=== PATIENT | female | born 1955 | race Caucasian/White ===

== ENCOUNTER 2020-06-25 14:00 | Emergency (ER) | payer OTHER, SELFPAY ==
[2020-06-25 14:05] VITALS: BP 141/72; PULSE 78; RESP 17; TEMP 36.3; O2SAT 99; BMI 23.8
--- NOTE | 2020-06-25 15:08 | US_ITS ---
STUDY: ABDOMINAL ULTRASOUND - RIGHT UPPER QUADRANT REASON FOR VISIT: Female, 64 years old PAIN abdominal pain TECHNIQUE: Ultrasound evaluation of the right upper quadrant was performed with real-time and static rankin-scale imaging. TECHNICAL QUALITY: Adequate. COMPARISON: None. FINDINGS: Liver: The liver measures 11.9 cm. There is normal echogenicity of the liver. The bile ducts are within normal limits. There is hepatic color flow. The direction of portal flow is hepatopetal. 3.5 cm cyst in the left lobe of the liver. Another 2.5 cm cyst in the right lobe of the liver. Another 3.5 cm cyst in the right lobe the liver. Gallbladder: Normal distended gallbladder. The gallbladder wall measures 2 mm. There is a negative sonographic Mims''s sign. There is no pericholecystic fluid. There are no gallstones. Common Bile Duct (C.B.D.): The common bile duct measures 5 mm. Pancreas: Normal size of the head, body and tail of the pancreas. There is normal echogenicity of the pancreas. There is no demonstrated pancreatic mass or cyst. Right Kidney: Normal size of the right kidney. The right kidney measures 10.0 cm. Normal renal cortex. The right cortex measures 1.0 cm. There is no demonstrated renal mass or cyst. There is no right hydronephrosis. US/Gallbladder IMPRESSION: No acute abnormality. Multiple hepatic cysts. Electronically Signed: Ar Gannon MD at 16:42 EDT Tel , Service support ,
--- NOTE | 2020-06-25 15:09 | EX.ED.DYSGE1 ---
HPI <Dr. Alessandro Gonzalez DO - Last Filed: 06/25/20 16:59> History of Present Illness Chief Complaint: Abd Pain Informant: patient and family Narrative Narrative: 64-year-old female presents for the evaluation of upper abdominal pain and nausea. She tells me that about Easter she began to have this intermittent pain seems to wax and wane in intensity. She describes it as upper abdominal into the right back. She notes nausea and decreased appetite. She states that she has lost about 8 pounds during this timeframe unintentionally. She not had any fevers or vomiting. She states she saw her family doctor twice most recently had blood work that showed an elevated lipase level but she does not know what that level was. She was advised that she should get a gallbladder ultrasound. She states she has been trying to get that scheduled this week but has been unsuccessful. Today the pain was worse so she came to emergency. [facility] <Dr. Alessandro Gonzalez DO - Last Filed: 06/25/20 16:59> [facility] Medical History (Updated 06/25/20 @ 16:[address] Alessandro Gonzalez DO) Hypertension Hyperthyroidism Home Medications amlodipine 5 mg PO DAILY 06/25/20 [History Last Taken Unknown] lansoprazole [Prevacid] 30 mg PO DAILY #30 cap 06/25/20 [Rx Last Taken Unknown] lisinopril 40 mg PO DAILY 06/25/20 [History Last Taken Unknown] metoprolol tartrate 25 mg PO BID 06/25/20 [History Last Taken Unknown] ondansetron 4 mg PO Q8H PRN PRN #12 tab 06/25/20 [Rx Last Taken Unknown] spironolactone 25 mg PO DAILY 06/25/20 [History Last Taken Unknown] Allergy/AdvReac Type Severity Reaction Status Date / Time No Known Allergies Allergy Verified 06/25/20 14:02 Surgical History (Updated 06/25/20 @ 16:[address] Alessandro Gonzalez DO) History of Social History (Updated 06/25/20 @ 16:[address] Alessandro Gonzalez DO) Smoking Status: Never smoker substance use type: does not use ROS <Dr. Alessandro Gonzalez DO - Last Filed: 06/25/20 16:59> ROS ED Constitutional Constitutional ED: Reports weight loss; Denies chills Eyes Eyes: Denies change in vision or diplopia ENT ENT ED: Denies ear pain, rhinorrhea or sore throat Cardiovascular Cardiovascular: Denies chest pain, orthopnea, palpitations or racing heartbeat Respiratory/Chest Respiratory/Chest: Denies cough, dyspnea or orthopnea Gastrointestinal Gastrointestinal: Reports abdominal pain and nausea; Denies diarrhea or vomiting Genitourinary Genitourinary ED: Denies dysuria, hematuria or urinary frequency Musculoskeletal Musculoskeletal: Denies arthralgias or myalgias Integumentary Denies abscess or rash Neurologic Neurologic: Denies headache(s) or weakness Psychiatric Psychiatric: Denies anxiety, depression, suicidal ideation or suicidal thoughts Endocrine Endocrinology: Denies polydipsia, polyphagia or polyuria Allergic/Immunologic Allergic/Immunologic ED: Denies mouth swelling, tongue swelling or urticaria EXAM <Dr. Alessandro Gonzalez DO - Last Filed: 06/25/20 16:59> Physical Exam Const Vital Signs: 06/25/20 14:05 06/25/20 17:01 Temperature 97.4 F L Temperature Source Temporal Pulse Rate 78 85 Respiratory Rate 17 16 Blood Pressure 141/72 H 117/67 Blood Pressure Mean 95 83 Pulse Ox 99 98 Oxygen Delivery Method Room Air Room Air Positive well nourished and well developed General Appearance ED: well developed HEENT Reports normocephalic, head/scalp atraumatic and moist mucous membranes Eyes PERRL and EOMs intact bilaterally Neck no lymphadenopathy, supple and no JVD Resp normal respiratory effort and clear to auscultation bilaterally Cardio regular rate, regular rhythm and no murmurs GI normal to inspection, nondistended, normoactive bowel sounds and non-tender Palpation: soft Back/Spine no CVA tenderness and normal ROM Extremity normal to inspection General Extremety ED: Negative for edema General Extremity: Negative for edema Neuro oriented x3 and CN's II-XII intact bilaterally Sensorium / Orientation: alert Motor Exam: strength 5/5 throughout Psych mental status grossly normal Mood & Affect: Negative for depressed or tearful Skin no rashes or lesions noted and no wounds <Dr. Shanel Boland MD - Last Filed: 06/25/20 18:41> Physical Exam Const Vital Signs: 06/25/20 14:05 06/25/20 17:01 Temperature 97.4 F L Temperature Source Temporal Pulse Rate 78 85 Respiratory Rate 17 16 Blood Pressure 141/72 H 117/67 Blood Pressure Mean 95 83 Pulse Ox 99 98 Oxygen Delivery Method Room Air Room Air MDM <Dr. Alessandro Gonzalez, DO - Last Filed: 06/25/20 16:59> [facility] Narrative Medical decision making narrative: Basic blood work showed a white count of 7.9. Lipase 112. Liver enzymes are normal. Gallbladder ultrasound was performed by radiology and read by them. I reviewed this. There is no evidence of cholelithiasis or active gallbladder disease. CT of the abdomen pelvis was performed. If this is negative she will need to probably speak with her doctor about a potential for a HIDA scan. We would also place her on a PPI if it is negative. At this point care the patient will be turned over to the evening physician for check of CT. Lab Data Attestation: I reviewed the patient's lab results. Labs: Laboratory Results - last 24 hr 06/25/20 06/25/20 15:30 15:30 WBC 7.9 RBC 4.85 Hgb 14.3 Hct 43.4 MCV 89.5 MCH 29.5 MCHC 32.9 RDW Std Deviation 41.8 RDW Coeff of Terrance 12.7 Plt Count 272 MPV 9.5 Immature Gran % (Auto) 0.100 Neut % (Auto) 79.5 H Lymph % (Auto) 13.5 L [place] % (Auto) 6.2 Eos % (Auto) 0.4 Baso % (Auto) 0.3 Absolute Neuts (auto) 6.3 Absolute Lymphs (auto) 1.06 Nucleated RBC % 0 Sodium 139 Potassium 3.4 L Chloride 104 Carbon Dioxide 29.0 Anion Gap 6 BUN 16 Creatinine 0.84 Estim Creat Clear Calc 54.92 Est GFR (MDRD) Af Amer 88 Est GFR (MDRD) Non-Af 73 BUN/Creatinine Ratio 19.0 Glucose 93 Calcium 9.6 Total Bilirubin 0.70 AST 17 ALT 27 Alkaline Phosphatase 63 Total Protein 8.4 H Albumin 4.5 Globulin 3.9 Albumin/Globulin Ratio 1.2 Lipase 112 Radiography Diagnostic Testing: Radiology Impression Gallbladder Ultrasound 06/25/20 15:08 IMPRESSION: No acute abnormality. Multiple hepatic cysts. Electronically Signed: Ar Gannon MD at 16:42 EDT Tel , Service support , Abdomen/Pelvis CT 06/25/20 17:02 IMPRESSION: Normal enhanced CT of the abdomen and pelvis. Electronically Signed: Ar Gannon MD at 17:41 EDT Tel , Service support , <Dr. Shanel Boland MD - Last Filed: 06/25/20 18:41> [facility] MDM Narrative Medical decision making narrative: Patient was checked out to me to check CT abdomen results. CT abdomen pelvis shows no acute process. Patient was given prescriptions for Prevacid and Zofran. She is requesting referral for a new family physician. She is given Dr. Mazariegos avionics repair technician for no doctor for follow-up. Advised return to ED for worsening complaints. Lab Data Attestation: I reviewed the patient's lab results. Labs: Laboratory Results - last 24 hr 06/25/20 06/25/20 15:30 15:30 WBC 7.9 RBC 4.85 Hgb 14.3 Hct 43.4 MCV 89.5 MCH 29.5 MCHC 32.9 RDW Std Deviation 41.8 RDW Coeff of Terrance 12.7 Plt Count 272 MPV 9.5 Immature Gran % (Auto) 0.100 Neut % (Auto) 79.5 H Lymph % (Auto) 13.5 L [place] % (Auto) 6.2 Eos % (Auto) 0.4 Baso % (Auto) 0.3 Absolute Neuts (auto) 6.3 Absolute Lymphs (auto) 1.06 Nucleated RBC % 0 Sodium 139 Potassium 3.4 L Chloride 104 Carbon Dioxide 29.0 Anion Gap 6 BUN 16 Creatinine 0.84 Estim Creat Clear Calc 54.92 Est GFR (MDRD) Af Amer 88 Est GFR (MDRD) Non-Af 73 BUN/Creatinine Ratio 19.0 Glucose 93 Calcium 9.6 Total Bilirubin 0.70 AST 17 ALT 27 Alkaline Phosphatase 63 Total Protein 8.4 H Albumin 4.5 Globulin 3.9 Albumin/Globulin Ratio 1.2 Lipase 112 Radiography Diagnostic Testing: Radiology Impression Gallbladder Ultrasound 06/25/20 15:08 IMPRESSION: No acute abnormality. Multiple hepatic cysts. Electronically Signed: Ar Gannon MD at 16:42 EDT Tel , Service support , Abdomen/Pelvis CT 06/25/20 17:02 IMPRESSION: Normal enhanced CT of the abdomen and pelvis. Electronically Signed: Ar Gannon MD at 17:41 EDT Tel , Service support , Discharge Plan Triage Chief Complaint: Abd Pain ED Provider: Shanel Boland Dx/Rx/DC Orders Clinical Impression: Abdominal pain, acute Instructions: ED Abdominal Pain Unkn Cause Fem Prescriptions: New lansoprazole [Prevacid] 30 mg capsule,delayed release(DR/EC) 30 mg PO DAILY Qty: 30 RF: 0 ondansetron [ondansetron] 4 MG tablet 4 mg PO Q8H PRN PRN (Reason: Nausea) Qty: 12 RF: 0 No Action amlodipine 5 mg Tablet 5 mg PO DAILY RF: 0 spironolactone 25 mg Tablet 25 mg PO DAILY RF: 0 lisinopril 40 mg Tablet 40 mg PO DAILY RF: 0 metoprolol tartrate 25 mg Tablet 25 mg PO BID RF: 0 Primary Care Provider: Eric Hart Referrals: Ophelia Mazariegos MD [STAFF PHYSICIAN] - Eric Hart MD [Primary Care Provider] - As soon as possible Stu Elizondo MD [NON-STAFF] - Disposition Disposition: Home, self care
[2020-06-25] MEDS: Morphine 2 MG/ML Syringe IV (15:35)
[2020-06-25] MEDS: Ondansetron 4 MG/2 ML Vial IV (15:35)
[2020-06-25 15:46] LABS: Absolute Lymphocyte Count 1.06 X10^3/uL (0.83-4.51); Absolute Neutrophil Count 6.3 X10^3/uL (2.0-7.7); Basophil# 0.02 X10^3/uL; Basophil% 0.3 % (0-1); Eosinophil# 0.03 X10^3/uL; Eosinophils% 0.4 % (0-5); Hematocrit 43.4 % (37-47); Hemoglobin 14.3 g/dL (12.0-15.0); Lymphocyte # 1.06 X10^3/ul (0.83-4.51); Lymphocyte % 13.5 % (19-41); Mean Corp Hgb Conc 32.9 g/dL (32-36); Mean Corpuscular Hgb 29.5 pg (27.0-32.0); Mean Corpuscular Volume 89.5 fL (81-99); Mean Platelet Vol. 9.5 fl (6.2-12.0); Monocyte# 0.49 X10^3/uL; Monocyte% 6.2 % (0-10); NRBC Flagged by Analyzer 0 % (0-5); Neutrophil # 6.25 X10^3/uL (2.7-7.7); Neutrophil % 79.5 % (47-70); Platelet Count 272 K/mm3 (150-450); RBC Distribution Width CV 12.7 % (11.6-14.6); RBC Distribution Width SD 41.8 fl (35.1-43.9); Red Blood Count 4.85 M/mm3 (4.2-5.4); White Blood Count 7.9 K/mm3 (4.4-11.0)
[2020-06-25 16:05] LABS: ALB/GLOB Ratio 1.2 RATIO (0.9-2.4); AST(SGOT) 17 U/L (15-37); Alanine Aminotransfer ALT/SGPT 27 U/L (13-56); Albumin, Serum 4.5 g/dL (3.2-5.0); Alkaline Phosphatase 63 U/L (45-117); Anion Gap 6 (5-15); BUN 16 mg/dL (7-18); Calcium,Total 9.6 mg/dL (8.5-10.1); Chloride 104 mmol/L (98-107); Creatinine, Serum 0.84 mg/dL (0.55-1.02); EST Glomerular Filtration Rate 73 mL/min (>60); Est Glom Filt Rate - Afr Amer 88 mL/min (>60); Estimated Creatinine Clearance 54.92 ml/min; Globulin 3.9 g/dL (2.2-4.2); Glucose 93 mg/dL (74-106); Lipase 112 U/L (73-393); Potassium 3.4 mmol/L (3.5-5.1); Protein, Total 8.4 g/dL (6.4-8.2); Sodium Level 139 mmol/L (136-145)
[2020-06-25 17:01] VITALS: BP 117/67; PULSE 85; RESP 16; O2SAT 98
--- NOTE | 2020-06-25 17:02 | CT_ITS ---
STUDY: CT ABDOMEN AND PELVIS WITH CONTRAST REASON FOR EXAM: Female, 64 years old. abdominal pain RADIATION DOSAGE (If Supplied By Facility): CTDIvol = ( 7.67 ) mGy, DLP = ( 395.98 ) mGycm TECHNIQUE: Transaxial images were obtained from the dome of the diaphragm to the symphysis pubis without oral contrast. IV 100mL Isovue-300 was administered. Sagittal and coronal images were reconstructed. Individualized dose optimization techniques were used for this CT. COMPARISON: None. FINDINGS: The visualized lung bases are unremarkable. The visualized portions of the heart are within normal limits. Multiple hepatic cysts. Normal gallbladder and extrahepatic biliary system. Normal spleen. Normal pancreas. Normal bilateral adrenal glands. Normal right kidney. Normal left kidney. Normal visualized stomach. Normal small intestine. Normal colon. The appendix is visualized and appears normal. Normal abdominal aorta. Normal inferior vena cava. Normal retroperitoneum. Normal urinary bladder. Normal abdominal wall. Normal osseous structures. CT/Abdomen/Pelvis W IV Cont ONLY IMPRESSION: Normal enhanced CT of the abdomen and pelvis. Electronically Signed: Ar Gannon MD at 17:41 EDT Tel , Service support ,
[2020-06-25 19:01] VITALS: BP 126/67; PULSE 85; RESP 16; O2SAT 98
== END 2020-06-25 19:02 | disposition home or self-care (01) ==
PROVIDERS: Emergency Medicine; Emergency Provider Emergency Medicine; PCP Family Medicine
DX: R10.9 Unspecified abdominal pain (principal); K76.89 Other specified diseases of liver; I10 Essential (primary) hypertension; E05.90 Thyrotoxicosis, unspecified without thyrotoxic crisis or storm; Z79.899 Other long term (current) drug therapy
CPT/HCPCS: 74177; 76705; 80053; 83690; 85025; 96374; 96375; 99283; Q9967; A4216; J2405

== ENCOUNTER → 2020-07-08 10:40 | Outpatient (CLI) | payer SELFPAY ==
[2020-06-25 14:05] VITALS: BMI 23.8
--- NOTE | 2020-07-08 10:46 | NM_ITS ---
CLINICAL: 64-year-old female with reported history of right upper quadrant abdominal pain. RADIONUCLIDE HEPATOBILIARY SCINTIGRAPHY COMPARISON: Gallbladder ultrasound report 06/25/2020, CT of the abdomen-pelvis report 06/25/2020 FINDINGS: Following the intravenous administration of 5.5 mCi of 99m Tc Mebrofenin, hepatobiliary images reveal: 1. Relatively prompt and homogeneous radiopharmaceutical concentration is noted by a normal sized liver. No parenchymal defects are identified. 2. Gallbladder activity is identified at 15 minutes post radiopharmaceutical administration. 3. Small intestinal tract is observed at 30 minutes following tracer injection. 4. Washout of the radiopharmaceutical by the hepatic parenchyma appears qualitatively normal. Cholecystokinin (0.02 ug/kg) was administered intravenously over a 30-minute period. The post CCK gallbladder ejection fraction calculated at 20 minutes following Cholecystokinin administration was noted to be 58.5 % (normal greater than 35%). During 30 minutes of post CCK imaging, there is no scintigraphic evidence of reflux of the radiotracer into the common hepatic duct or refilling of the gallbladder. WI/Hepatobilliary Img w/Pharm Int IMPRESSION: 1. NORMAL 99m Tc Mebrofenin hepatobiliary imaging examination with Cholecystokinin. A. A gallbladder ejection fraction calculated to be greater than 35% following the administration of Cholecystokinin makes the probability of functional hepatobiliary disease (gallbladder and/or sphincter of Oddi dyskinesia) and/or organic hepatobiliary disease (chronic acalculous cholecystitis and/or cystic duct syndrome) to be low. (Jered Hicks et al, Journal of Nuclear Medicine 32:1695, 1991). Electronically Signed: Ar Calixto DO at 21:53 EDT Tel , Service support ,
== END ==
PROVIDERS: PCP Family Medicine; Referring Provider Family Medicine; Visit Provider Family Medicine
DX: R10.11 Right upper quadrant pain (principal)
CPT/HCPCS: 78227; A9537; J2805

== ENCOUNTER → 2020-08-30 10:49 | Outpatient (CLI) | payer SELFPAY ==
[2020-08-30 12:10] LABS: AST(SGOT) 20 U/L (15-37); Alanine Aminotransfer ALT/SGPT 29 U/L (13-56); Albumin, Serum 3.6 g/dL (3.2-5.0); Alkaline Phosphatase 63 U/L (45-117); Anion Gap 4 (5-15); BUN 13 mg/dL (7-18); Calcium,Total 9.1 mg/dL (8.5-10.1); Chloride 106 mmol/L (98-107); Creatinine, Serum 0.81 mg/dL (0.55-1.02); EST Glomerular Filtration Rate 76 mL/min (>60); Est Glom Filt Rate - Afr Amer 92 mL/min (>60); Free T3 3.1 pg/mL (2.18-3.98); Globulin 3.6 g/dL (2.2-4.2); Glucose 113 mg/dL (74-106); Potassium 3.9 mmol/L (3.5-5.1); Protein, Total 7.2 g/dL (6.4-8.2); Sodium Level 138 mmol/L (136-145); T4 Free Direct 0.88 ng/dL (0.76-1.46); Thyroid Stim Hormone (TSH) 0.14 uIU/mL (0.358-3.74)
[2020-09-01 07:07] LABS: Thyroid Stim Immunoglob <0.10 IU/L (0.00-0.55)
[2020-09-01 10:20] LABS: Anti-Thyroglobulin AB < 1.0 IU/mL (0.0-0.9); Thyroglobulin, Serum Qt. 123.2 ng/mL (1.5-38.5)
== END ==
PROVIDERS: PCP Family Medicine
DX: E05.00 Thyrotoxicosis with diffuse goiter without thyrotoxic crisis or storm (principal)
CPT/HCPCS: 80053; 84432; 84439; 84443; 84445; 84481; 86800

== ENCOUNTER → 2020-09-22 08:50 | Outpatient (CLI) | payer SELFPAY ==
--- NOTE | 2020-09-22 08:54 | NM_ITS ---
CLINICAL: Female, 64 years old. Patient states she had half of her thyroid removed due to goiter. -- Now question if growing back. -- Abnormal TSH THYROID IMAGING STUDY TECHNIQUE: The patient was administered a 279 uCi I-123 capsule by mouth. COMPARISON STUDIES : NM - None. CR - Not available for review at this time. CT - Not available for review at this time. MR - Not available for review at this time. US - Not available for review at this time. FINDINGS: The 4 I-123 radioactive iodine thyroidal uptake was calculated to be 7.8% (normal 6 to 20%). The 24-hour I-123 radioactive iodine thyroidal uptake was calculated to be 21.7% (normal 5 to 35%). The I-123 thyroid scan demonstrates heterogeneous radiopharmaceutical concentration throughout both lobes of a U-shaped thyroid gland. There are no colloidal parenchymal nodules noted in either lobe of the thyroid gland. NM/Thyroid Uptake Single or Mult IMPRESSION: Normal 6- and 24-hour I-123 radioactive iodine thyroidal uptakes. Heterogeneous uptake throughout the gland suggestive of thyroiditis. Electronically Signed: Ar Gannon MD at 8:50 EDT Tel , Service support ,
== END ==
PROVIDERS: PCP Family Medicine
DX: E05.90 Thyrotoxicosis, unspecified without thyrotoxic crisis or storm (principal)
CPT/HCPCS: 78012; A9516

== ENCOUNTER → 2022-05-19 | Outpatient (CLI) | payer SELFPAY ==
[2022-05-19 12:31] LABS: Anion Gap 4 (5-15); BUN 16 mg/dL (7-18); BUN/Creat Ratio 20.3 RATIO (10-20); Calcium,Total 9.1 mg/dL (8.5-10.1); Chloride 105 mmol/L (98-107); Creatinine, Serum 0.79 mg/dL (0.55-1.02); EST Glomerular Filtration Rate 78 mL/min (>60); Est Glom Filt Rate - Afr Amer 94 mL/min (>60); Glucose 95 mg/dL (74-106); Potassium 4.1 mmol/L (3.5-5.1); Sodium Level 139 mmol/L (136-145)
== END | disposition home or self-care (01) ==
PROVIDERS: PCP Family Medicine
DX: I10 Essential (primary) hypertension (principal); I20.0 Unstable angina; R00.2 Palpitations
CPT/HCPCS: 36415; 80048